=== PATIENT | female | born 1985 | race Caucasian/White ===

== ENCOUNTER 2018-02-16 14:40 | Inpatient (IN) | payer OTHER ==
[2018-02-16] MEDS ORDERED: ONDANSETRON 4 MG/2 ML VIAL IVP STA (15:20)
[2018-02-16] MEDS ORDERED: KETOROLAC 30 MG/ML 1 ML VIAL IVP STA (15:20)
[2018-02-16] MEDS ORDERED: SODIUM CHLORIDE 0.9% 1,000 ML IV STA ×2 (15:20→18:31)
[2018-02-16] MEDS ORDERED: PANTOPRAZOLE 40 MG/10 ML VIAL IVP STA (15:20)
--- NOTE | 2018-02-16 15:36 | ED ---
Abdominal Pain HPI - General Chief Complaint: Abdominal Pain Stated Complaint: Abd pain Time Seen by Provider: 02/16/18 14:51 Source: patient, RN notes reviewed, old records reviewed Mode of arrival: ambulatory Limitations: no limitations - History of Present Illness Initial Comments: This is a 30-year-old female the ER for evaluation abdominal pain. 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 Patient coming in with severe epigastric abdominal pain. Her back. Symptoms of been episodic for a few days of progressively worsening. Patient is unable to tolerate oral intake, react nausea vomiting. Denies fever denies any diarrhea or other significant abdominal pain lower belly. No prior history of abdominal surgeries or GI evaluation. Patient has no modifying factors for pain currently. No recent travel history or sick contacts MD Complaint: abdominal pain -: days(s) Location: periumbilical (With radiation to back) Radiation: back Severity: moderate Severity scale (1-10): 6 Quality: aching, sharp Consistency: constant Improves With: nothing Worsens With: eating Associated Symptoms: nausea, vomiting, diarrhea - Related Data Home Medications Medication Instructions Recorded Confirmed Albuterol Inhaler [Ventolin Hfa 2 puff INHALATION RT-Q6H PRN 02/16/18 02/16/18 Inhaler] Ibuprofen [Motrin Ib] 600 mg PO Q6HR PRN 02/16/18 02/16/18 Allergies Allergy/AdvReac Type Severity Reaction Status Date / Time No Known Allergies Allergy Verified 02/16/18 15:37 Review of Systems ROS Statement: Those systems with pertinent positive or pertinent negative responses have been documented in the HPI. ROS Other: All systems not noted in ROS Statement are negative. Past Medical History Additional Past Medical History / Comment(s): hep c meth use currently at [facility] for treatment History of Any Multi-Drug Resistant Organisms: None Reported Past Surgical History: Section Past Psychological History: No Psychological Hx Reported Smoking Status: Current every day smoker Past Alcohol Use History: None Reported Past Drug Use History: None Reported, Methamphetamine General Exam Limitations: no limitations General appearance: alert, in no apparent distress Head exam: Present: atraumatic, normocephalic, normal inspection Eye exam: Present: normal appearance, PERRL, EOMI. Absent: scleral icterus, conjunctival injection, periorbital swelling ENT exam: Present: normal exam, mucous membranes moist Neck exam: Present: normal inspection. Absent: tenderness, meningismus, lymphadenopathy Respiratory exam: Present: normal lung sounds bilaterally. Absent: respiratory distress, wheezes, rales, rhonchi, stridor Cardiovascular Exam: Present: regular rate, normal rhythm, normal heart sounds. Absent: systolic murmur, diastolic murmur, rubs, gallop, clicks GI/Abdominal exam: Present: soft, tenderness (epigastric), normal bowel sounds. Absent: distended, guarding, rebound, rigid Extremities exam: Present: normal inspection, full ROM, normal capillary refill. Absent: tenderness, pedal edema, joint swelling, calf tenderness Back exam: Present: normal inspection Neurological exam: Present: alert, oriented X3, CN II-XII intact Psychiatric exam: Present: normal affect, normal mood Skin exam: Present: warm, dry, intact, normal color. Absent: rash Course Vital Signs 02/16/18 14:46 Temperature 98.0 F Pulse Rate 79 Respiratory 18 Rate Blood Pressure 125/80 O2 Sat by Pulse 99 Oximetry - Reevaluation(s) Reevaluation #1: 02/16/18 18:25 Medical record is reviewed Reevaluation #2: 02/16/18 18:25 Patient is continued intractable abdominal pain with nausea and vomiting Medical Decision Making - Medical Decision Making 32 female the ER for evaluation severe epigastric pain. Pain radiates to back, pancreatitis with ulcerative disease likely peptic ulcer disease, patient be admitted for IV hydration and pain control - Lab Data Result diagrams: 02/16/18 15:38 02/16/18 15:38 Lab Results 02/16/18 02/16/18 02/16/18 Range/Units 15:38 15:38 15:49 WBC 8.2 (3.8-10.6) k/uL RBC 4.13 (3.80-5.40) m/uL Hgb 12.9 (11.4-16.0) gm/dL Hct 39.2 (34.0-46.0) % MCV 94.9 (80.0-100.0) fL MCH 31.4 (25.0-35.0) pg MCHC 33.0 (31.0-37.0) g/dL RDW 13.5 (11.5-15.5) % Plt Count 251 (150-450) k/uL Neutrophils % 72 % Lymphocytes % 20 % Monocytes % 4 % Eosinophils % 2 % Basophils % 0 % Neutrophils # 5.9 (1.3-7.7) k/uL Lymphocytes # 1.7 (1.0-4.8) k/uL Monocytes # 0.3 (0-1.0) k/uL Eosinophils # 0.2 (0-0.7) k/uL Basophils # 0.0 (0-0.2) k/uL Sodium 139 (137-145) mmol/L Potassium 4.8 (3.5-5.1) mmol/L Chloride 107 (98-107) mmol/L Carbon Dioxide 24 (22-30) mmol/L Anion Gap 8 mmol/L BUN 12 (7-17) mg/dL Creatinine 0.57 (0.52-1.04) mg/dL Est GFR (CKD-EPI)AfAm >90 (>60 ml/min/1.73 sqM) Est GFR (CKD-EPI)NonAf >90 (>60 ml/min/1.73 sqM) Glucose 109 H (74-99) mg/dL Calcium 9.3 (8.4-10.2) mg/dL Total Bilirubin 0.2 (0.2-1.3) mg/dL AST 30 (14-36) U/L ALT 46 (9-52) U/L Alkaline Phosphatase 50 (38-126) U/L Total Protein 6.5 (6.3-8.2) g/dL Albumin 3.5 (3.5-5.0) g/dL Amylase 75 (30-110) U/L Lipase 239 (23-300) U/L Urine Color Urine Appearance (Clear) Urine pH (5.0-8.0) Ur Specific [place] (1.001-1.035) Urine Protein (Negative) Urine Glucose (UA) (Negative) Urine Ketones (Negative) Urine Blood (Negative) Urine Nitrite (Negative) Urine Bilirubin (Negative) Urine Urobilinogen (<2.0) mg/dL Ur Leukocyte Esterase (Negative) Ur Squamous Epith Cells (0-4) /hpf Amorphous Sediment (None) /hpf Urine HCG, Qual Not Detected (Not Detectd) 02/16/18 Range/Units 15:49 WBC (3.8-10.6) k/uL RBC (3.80-5.40) m/uL Hgb (11.4-16.0) gm/dL Hct (34.0-46.0) % MCV (80.0-100.0) fL MCH (25.0-35.0) pg MCHC (31.0-37.0) g/dL RDW (11.5-15.5) % Plt Count (150-450) k/uL Neutrophils % % Lymphocytes % % Monocytes % % Eosinophils % % Basophils % % Neutrophils # (1.3-7.7) k/uL Lymphocytes # (1.0-4.8) k/uL Monocytes # (0-1.0) k/uL Eosinophils # (0-0.7) k/uL Basophils # (0-0.2) k/uL Sodium (137-145) mmol/L Potassium (3.5-5.1) mmol/L Chloride (98-107) mmol/L Carbon Dioxide (22-30) mmol/L Anion Gap mmol/L BUN (7-17) mg/dL Creatinine (0.52-1.04) mg/dL Est GFR (CKD-EPI)AfAm (>60 ml/min/1.73 sqM) Est GFR (CKD-EPI)NonAf (>60 ml/min/1.73 sqM) Glucose (74-99) mg/dL Calcium (8.4-10.2) mg/dL Total Bilirubin (0.2-1.3) mg/dL AST (14-36) U/L ALT (9-52) U/L Alkaline Phosphatase (38-126) U/L Total Protein (6.3-8.2) g/dL Albumin (3.5-5.0) g/dL Amylase (30-110) U/L Lipase (23-300) U/L Urine Color Yellow Urine Appearance Turbid H (Clear) Urine pH 7.5 (5.0-8.0) Ur Specific [place] 1.012 (1.001-1.035) Urine Protein Negative (Negative) Urine Glucose (UA) Negative (Negative) Urine Ketones Negative (Negative) Urine Blood Negative (Negative) Urine Nitrite Negative (Negative) Urine Bilirubin Negative (Negative) Urine Urobilinogen <2.0 (<2.0) mg/dL Ur Leukocyte Esterase Negative (Negative) Ur Squamous Epith Cells 1 (0-4) /hpf Amorphous Sediment Occasional H (None) /hpf Urine HCG, Qual (Not Detectd) - Radiology Data Radiology results: report reviewed (CT head and pelvis positive for pancreatitis and likely peptic ulcer disease), image reviewed Disposition Clinical Impression: Abdominal pain, Gastritis, Pancreatitis, Peptic ulcer disease Disposition: ADMITTED IP TO THIS [facility] Condition: Good Is patient prescribed a controlled substance at d/c from ED?: No Referrals: None,Stated [Primary Care Provider] - 1-2 days
[2018-02-16 15:52] LABS: Basophils % (A) 0 %; Eosinophils # (A) 0.2 k/uL (0-0.7); Eosinophils % (A) 2 %; HCT 39.2 % (34.0-46.0); HGB 12.9 gm/dL (11.4-16.0); Lymphocytes # (A) 1.7 k/uL (1.0-4.8); Lymphocytes % (A) 20 %; MCH 31.4 pg (25.0-35.0); MCV 94.9 fL (80.0-100.0); Monocytes # (A) 0.3 k/uL (0-1.0); Monocytes % (A) 4 %; Neutrophils # (A) 5.9 k/uL (1.3-7.7); Neutrophils % (A) 72 %; Platelet Count 251 k/uL (150-450); RBC 4.13 m/uL (3.80-5.40); RDW 13.5 % (11.5-15.5); WBC 8.2 k/uL (3.8-10.6)
[2018-02-16 16:01] LABS: ALT 46 U/L (9-52); AST 30 U/L (14-36); Albumin 3.5 g/dL (3.5-5.0); Alkaline Phosphatase 50 U/L (38-126); Amylase 75 U/L (30-110); Anion Gap 8 mmol/L; Blood Urea Nitrogen 12 mg/dL (7-17); Calcium 9.3 mg/dL (8.4-10.2); Carbon Dioxide 24 mmol/L (22-30); Chloride 107 mmol/L (98-107); Glucose 109 mg/dL (74-99); Lipase 239 U/L (23-300); Potassium 4.8 mmol/L (3.5-5.1); Sodium 139 mmol/L (137-145); Total Bilirubin 0.2 mg/dL (0.2-1.3); Total Protein 6.5 g/dL (6.3-8.2)
[2018-02-16 16:31] LABS: Amorphous Sediment,Urine Occasional /hpf; Appearance,Urine Turbid (Clear); Bilirubin,Urine Negative (Negative); Blood,Urine Negative (Negative); Color,Urine Yellow; Glucose,Urine (UA) Negative (Negative); Ketones,Urine Negative (Negative); Leukocyte Esterase,Urine Negative (Negative); Nitrite,Urine Negative (Negative); PH, Urine 7.5 (5.0-8.0); Protein,Urine Negative (Negative); Specific Gravity,Urine 1.012 (1.001-1.035); Squamous Epithelial Cell,Urine 1 /hpf (0-4); Urobilinogen,Urine <2.0 mg/dL (<2.0)
--- NOTE | 2018-02-16 17:56 | CT ---
EXAMINATION TYPE: CT abdomen pelvis w con DATE OF EXAM: 02/16/2018 COMPARISON: None HISTORY: Mid abdominal pain with nausea, vomiting, back and right shoulder pain x [address] DLP: 604.9 mGycm Automated exposure control for dose reduction was used. TECHNIQUE: Helical acquisition of images was performed from the lung bases through the pelvis. CONTRAST: Performed without Oral Contrast and with IV Contrast, patient injected with 100 mL of Isovue 300. FINDINGS: There is edematous change throughout the anterior pararenal space of the epigastrium, related to the proximal duodenum as well as the pancreatic head and neck. This can correlate with a clinical diagnos is of pancreatitis versus peptic ulcer disease. LUNG BASES: No significant abnormality is appreciated. LIVER/GB: No significant abnormality is appreciated. PANCREAS: As above. SPLEEN: No significant abnormality is seen. ADRENALS: No significant abnormality is seen. KIDNEYS: No significant abnormality is seen. FREE AIR: No free air is visualized. RETROPERITONEAL ADENOPATHY: None visualized REPRODUCTIVE ORGANS: The uterus and bilateral adnexa appears mildly enlarged and indistinct. If clini rene indicated, ultrasound characterization can characterize. URINARY BLADDER: No significant abnormality is seen. PELVIC ADENOPATHY: None visualized. OSSEOUS STRUCTURES: No significant abnormality is seen. BOWEL: Epigastric extraperitoneal edematous change as above. Immediate of the hollow viscera examina tion unremarkable. VASCULATURE: No acute findings. IMPRESSION: SUSPECT PANCREATITIS VERSUS PEPTIC ULCER DISEASE.
[2018-02-16] MEDS ORDERED: SODIUM CHLORIDE 0.9% 1,000 ML IV ONE (18:27)
[2018-02-16] MEDS ORDERED: MORPHINE SULFATE 4 MG/ML SYRINGE IVP STA (18:28)
[2018-02-16] MEDS ORDERED: ONDANSETRON 4 MG/2 ML VIAL IVP PRN (18:28)
[2018-02-16] MEDS ORDERED: SODIUM CHLORIDE 0.9% 500 ML 500 ML IV STA (18:31)
[2018-02-16] MEDS ORDERED: NICOTINE 21MG/24HR PATCH TRANSDERM STA (18:40)
--- NOTE | 2018-02-16 20:23 | P.HPIM ---
History of Present Illness H&P Date: 02/16/18 Chief Complaint: Abdominal pain The patient is a 32-year-old female with a past medical history of bronchitis, hepatitis C who presents to the ER via private vehicle with chief complaint of abdominal pain. The patient reports constant severe sharp mid epigastric to right upper quadrant abdominal pain over the last 6 days with radiation into her back and right shoulder. She reports associated nausea and vomiting but denies any constipation or diarrhea, she denies any chest pain shortness of breath or palpitations or subjective fevers chills or night sweats. The patient denies any significant alcohol use, she does report a history of taking NSAIDs ibuprofen for chronic headaches and migraines and takes of approximately 3-4 days per week. The patient denies any significant appetite changes and is also requesting to eat. In the ER the patient had a comprehensive workup: CT abdomen and pelvis suggestive of acute pancreatitis versus peptic ulcer disease, she received morphine and Zofran. Her admission lab work was largely unremarkable. Review of Systems Pertinent positives per HPI all other review of systems are otherwise negative Past Medical History Past Medical History: Asthma Additional Past Medical History / Comment(s): hep c - iv meth use -currently at [facility] for treatment, bronchitis,"occ heartburn takes otc med), "i had a seizure few weeks ago witness by my dad but i did'nt seek help". History of Any Multi-Drug Resistant Organisms: None Reported Past Surgical History: Section Past Anesthesia/Blood Transfusion Reactions: No Reported Reaction Smoking Status: Current every day smoker - Past Family History Mother Family Medical History: CVA/TIA Additional Family Medical History / Comment(s): grandmother has breast cancer Father Family Medical History: CVA/TIA Additional Family Medical History / Comment(s): tia Medications and Allergies Home Medications Medication Instructions Recorded Confirmed Type Albuterol Inhaler [Ventolin Hfa 2 puff INHALATION RT-Q6H PRN 02/16/18 02/16/18 History Inhaler] Ibuprofen [Motrin Ib] 600 mg PO Q6HR PRN 02/16/18 02/16/18 History Allergies Allergy/AdvReac Type Severity Reaction Status Date / Time No Known Allergies Allergy Verified 02/16/18 15:37 Physical Exam Vitals: Vital Signs Temp Pulse Resp BP Pulse Ox 02/16/18 14:46 98.0 F 79 18 125/80 99 Intake and Output 02/16/18 02/16/18 02/16/18 06:59 14:59 22:59 Other: Weight 66.678 kg Constitutional: No acute distress, conversant, pleasant Eyes: Anicteric sclerae, moist conjunctiva, no lid-lag, PERRLA ENMT: NC/AT,Oropharynx clear, no erythema, exudates Neck:Supple, FROM, no masses, or JVD, No carotid bruits; No thyromegaly Lungs: Clear to auscultation, Clear to percussion, Normal respiratory effort, no accessory muscle use Cardiovascular: Heart regular in rate and rhythm, No murmurs, gallops, or rubs no peripheral edema Abdominal: Soft tender to palpation in the epigastrium and right upper quadrant , positive Alonzo sign, no guarding, no rebound or rigidity, Normoactive bowel sounds No hepatomegaly, No splenomegaly, No palpable mass No abdominal wall hernia noted Skin: Normal temperature, tone, texture, turgor, No induration No subcutaneous nodules, No rash, lesions, No ulcers Extremities:No digital cyanosis No clubbing, Pedal pulses intact and symmetrical Radial pulses intact and symmetrical Normal gait and station, No calf tenderness Psychiatric: Alert and oriented to person, place and time, Appropriate affect Intact judgement Neuro: Muscles Strength 5/5 in all 4 extremities, Sensation to light touch grossly present throughout, Cranial nerves II-XII grossly intact. No focal sensory deficits Results CBC & Chem 7: 02/16/18 15:38 02/16/18 15:38 Labs: Abnormal Lab Results - Last 24 Hours (Table) 02/16/18 02/16/18 Range/Units 15:38 15:49 Glucose 109 H (74-99) mg/dL Urine Appearance Turbid H (Clear) Amorphous Sediment Occasional H (None) /hpf Assessment and Plan Assessment: Chronic medical conditions Asthma Hepatitis C GERD History of IV drug use (1) Epigastric pain Current Visit: Yes Status: Acute Code(s): R10.13 - EPIGASTRIC PAIN SNOMED Code(s): 15964366 (2) Peptic ulcer disease Current Visit: Yes Status: Acute Code(s): K27.9 - PEPTIC ULC, SITE UNSP, UNSP AC OR CHR, W/O HEMOR OR PERF SNOMED Code(s): 73285734 (3) GERD (gastroesophageal reflux disease) Current Visit: Yes Status: Acute Code(s): K21.9 - GASTRO-ESOPHAGEAL REFLUX DISEASE WITHOUT ESOPHAGITIS SNOMED Code(s): 884717795 (4) Asthma Current Visit: Yes Status: Acute Code(s): J45.909 - UNSPECIFIED ASTHMA, UNCOMPLICATED SNOMED Code(s): 112080766 Plan: The patient is placed on observation anticipated less than 2 midnight stay with acute midepigastric pain workup and history suggesting underlying peptic ulcer disease likely secondary to ongoing NSAID use. CT abdomen and pelvis suggesting peptic ulcer disease versus pancreatitis with lipase is normal with no significant history of alcoholism. Patient was started on IV fluids, IV antiemetics and IV morphine for pain. Patient with positive Alonzo sign on exam will order right upper quadrant ultrasound to rule out underlying hepatobiliary disease. We'll also plan to consult GI for evaluationpatient may need a EGD. Continued on IV Protonix. Patient's asthma of unknown type is currently stable without acute exacerbation. we'll continue to follow patient's clinical course CODE STATUS Full code Discussed plan of care with; patient and ER physician Anticipated discharge 1-2 days
[2018-02-16] MEDS: MORPHINE SULFATE 4 MG/ML SYRINGE IVP PRN (22:16)
[2018-02-17] MEDS: MORPHINE SULFATE 4 MG/ML SYRINGE IVP PRN ×2 (01:43→06:12)
[2018-02-17] MEDS: SODIUM CHLORIDE 0.9% 1,000 ML IV SCH ×2 (08:33→16:20)
[2018-02-17] MEDS: HEPARIN SODIUM,PORCINE 5,000 UNIT/ML 1 ML VIAL SQ SCH ×2 (08:34→20:25)
[2018-02-17] MEDS ORDERED: PANTOPRAZOLE 40 MG/10 ML VIAL IVP SCH (09:00)
--- NOTE | 2018-02-17 09:03 | P.CONS ---
History of Present Illness - Reason for Consult Consult date: 02/17/18 Pancreatitis abdominal pain Requesting physician: Jonh Becerra - Chief Complaint Abdominal pain - History of Present Illness 32-year-old female with a history of IVDA heroin, long-standing EtOH abuse chronic hepatitis C without antiviral treatment presently at [facility] for rehabilitation presents with a one-week history of severe epigastric upper abdominal back pain with nonbloody emesis. Patient last abused alcohol about 10 days ago as well as heroin/methamphetamines. No history of this type of pain. CT reported suspect pancreatitis possible peptic ulcer disease. Liver function tests pancreatic enzymes within normal limits. Afebrile. Denies hematemesis hematochezia melena. Ultrasound abdomen pending. She has been prescribed antiviral treatment for her hepatitis C by another outside provider but has not started it. White count 8.2. Hemoglobin 12.9. Platelet 251. HCG not detected. This morning her abdominal pain is much improved she's requesting diet. Review of Systems Constitutional: Denies fever, chills, sweats, weight gain, or loss. HEENT: Negative for migraines, blurred vision or loss, earaches, drainage, tinnitus, oral mucosal lesions, dysphagia, or odynophagia. CARDIAC: Negative for chest pain, arrhythmias, or palpitation. RESPIRATORY: Negative for shortness of breath, hemoptysis, cough, or sputum production. GI: See HPI for pertinent findings. : Negative for hematuria, urgency, frequency, polyuria, or dysuria. GYNc: Denies possibility of . Negative vaginal discharge. MUSCULOSKELETAL: Negative for muscle aches, swelling, arthritis, and arthralgias. NEUROLOGIC: Negative for stroke or TIA. ENDOCRINE: Negative for thyroid problems. SKIN: Negative for rash or itching. PSYCHIATRIC: Negative history for depression and anxiety Past Medical History Past Medical History: Asthma Additional Past Medical History / Comment(s): hep c - iv meth use -currently at [facility] for treatment, bronchitis,"occ heartburn takes otc med), "i had a seizure few weeks ago witness by my dad but i did'nt seek help". History of Any Multi-Drug Resistant Organisms: None Reported Past Surgical History: Section Past Anesthesia/Blood Transfusion Reactions: No Reported Reaction Smoking Status: Current every day smoker - Past Family History Mother Family Medical History: CVA/TIA Additional Family Medical History / Comment(s): grandmother has breast cancer Father Family Medical History: CVA/TIA Additional Family Medical History / Comment(s): tia Medications and Allergies Home Medications Medication Instructions Recorded Confirmed Type Albuterol Inhaler [Ventolin Hfa 2 puff INHALATION RT-Q6H PRN 02/16/18 02/16/18 History Inhaler] Ibuprofen [Motrin Ib] 600 mg PO Q6HR PRN 02/16/18 02/16/18 History Allergies Allergy/AdvReac Type Severity Reaction Status Date / Time No Known Allergies Allergy Verified 02/16/18 15:37 Physical Exam Vitals: Vital Signs Temp Pulse Pulse Resp BP BP Pulse Ox 02/17/18 06:17 97.9 F 65 15 115/78 98 02/16/18 23:00 97.4 F L 64 18 115/75 100 02/16/18 20:29 97.8 F 68 18 122/79 99 02/16/18 18:50 85 18 110/80 98 02/16/18 14:46 98.0 F 79 18 125/80 99 Intake and Output 02/16/18 02/17/18 02/17/18 22:59 06:59 14:59 Output Total 200 Balance -200 Output: Urine 200 Other: # Voids 0 Weight 66.678 kg General appearance: The patient is alert, oriented, in no acute distress. HET: Head is normocephalic and atraumatic. Pupils are equal and reactive. Oropharynx is clear without lesions. Neck: Supple without lymphadenopathy. Trachea midline. Heart: S1 S2. Regular rate and rhythm. Lungs: No crackles or wheezes are heard. Abdomen: Soft, nontender, nondistended with bowel sounds. No peritoneal signs. No palpable organomegaly or masses. Extremities: Normal skin color and turgor. No cyanosis, rash, ulceration, clubbing, or edema. Radial and pedal pulses are 2/4 bilaterally. Neurological: No focal deficits. Strength and sensation are grossly intact. Results CBC & Chem 7: 02/16/18 15:38 02/16/18 15:38 Labs: Abnormal Lab Results - Last 24 Hours (Table) 02/16/18 02/16/18 Range/Units 15:38 15:49 Glucose 109 H (74-99) mg/dL Urine Appearance Turbid H (Clear) Amorphous Sediment Occasional H (None) /hpf Microbiology - Last 24 Hours (Table) 02/16/18 15:49 Urine Culture - Preliminary Urine,Voided CT scan - abdomen: report reviewed (Dr. Leblanc) US - abdomen: pending Assessment and Plan (1) Pancreatitis Narrative/Plan: Acute pancreatitis suspect alcohol related with a long-standing history of EtOH abuse intravenous drug abuse last usage 10 days ago with biochemical stability of pancreatic and liver enzymes. The possibility of peptic ulcer disease is within the differential however her presentation seems to be more alcohol possible drug-induced related. No episodes of hematemesis hematochezia melena fever chills or prior history of peptic ulcer disease. Current Visit: Yes Status: Acute Code(s): K85.90 - ACUTE PANCREATITIS WITHOUT NECROSIS OR INFECTION, UNSP SNOMED Code(s): 91599898 (2) Chronic hepatitis C Current Visit: Yes Status: Acute Code(s): B18.2 - CHRONIC VIRAL HEPATITIS C SNOMED Code(s): 122662873 (3) ETOH abuse Current Visit: Yes Status: Acute Code(s): F10.10 - ALCOHOL ABUSE, UNCOMPLICATED SNOMED Code(s): 83275474 (4) Drug abuse Current Visit: Yes Status: Acute Code(s): F19.10 - OTHER PSYCHOACTIVE SUBSTANCE ABUSE, UNCOMPLICATED SNOMED Code(s): 61421132 Plan: 1. Inpatient EGD not planned at this time empirically treated with Protonix 40 mg daily. Patient is requesting diet and discharge. Will allow low fat diet if tolerated discharge per medicine. Alcohol abstinence intravenous drug abuse/ methamphetamine use abstinence was strongly advised. Thank you for this kind referral and the opportunity to participate in the care of your patient. This consultation was discussed with Dr. Leblanc. The impression and plan of care have been directed as dictated.
--- NOTE | 2018-02-17 09:13 | US ---
EXAMINATION TYPE: US abdomen limited DATE OF EXAM: 02/17/2018 COMPARISON: Correlation CT 02/16/2018 CLINICAL HISTORY: 32-year-old female abdominal pain with nausea, rule out GB disease. TECHNIQUE: Multiple sonographic images of the right upper quadrant are obtained. FINDINGS: EXAM MEASUREMENTS: Liver Length: 18.2 cm Gallbladder Wall: 0.2 cm CBD: 4.8 mm Right Kidney: 11.7 x 5.4 x 4.7 cm Pancreas: wnl Liver: Mildly enlarged. No focal lesion. Overall homogeneous echotexture. Trace perihepatic ascites noted. Gallbladder: appears slightly contracted and patient is NPO 7hrs, no obvious stone or wall thickenin g seen. Evidence for sonographic Alonzo's sign: no CBD: wnl Right Kidney: 2.0 cm mid pole cyst seen IMPRESSION: 1. Mild hepatomegaly. 2. Trace perihepatic ascites of uncertain etiology. 3. No evidence for cholelithiasis or specific sonographic findings of acute cholecystitis at this [facility].
--- NOTE | 2018-02-17 10:32 | P.PN ---
Subjective Progress Note Date: 02/17/18 Principal diagnosis: Epigastric pain Patient is feeling about the same today. She is still complaining of severe pain mostly in the epigastric area. No nausea or vomiting overnight. Objective - Vital Signs Vital signs: Vital Signs Temp 97.9 F 02/17/18 06:17 Pulse 65 02/17/18 06:17 Resp 15 02/17/18 06:17 BP 115/78 02/17/18 06:17 Pulse Ox 98 02/17/18 06:17 Intake & Output 02/16/18 02/17/18 02/17/18 18:59 06:59 18:59 Output Total 200 Balance -200 Weight 66.678 kg 66.678 kg Output: Urine 200 Other: # Voids 0 - Exam General: The patient is awake and alert, in no distress Eye: there is normal conjunctiva bilaterally. Neck: The neck is supple, there is no JVD. Cardiovascular: Normal S1-S2, no S3-S4, no murmurs. Respiratory: Lungs clear to auscultation bilaterally Gastrointestinal: Abdomen is soft, there is moderate tenderness to palpation mostly in the epigastric area Musculoskeletal: There is no pedal edema. Neurological:. Speech is normal. Skin: Skin is warm and dry - Labs CBC & Chem 7: 02/16/18 15:38 02/16/18 15:38 Labs: Abnormal Lab Results - Last 24 Hours (Table) 02/16/18 02/16/18 Range/Units 15:38 15:49 Glucose 109 H (74-99) mg/dL Urine Appearance Turbid H (Clear) Amorphous Sediment Occasional H (None) /hpf Microbiology - Last 24 Hours (Table) 02/16/18 15:49 Urine Culture - Preliminary Urine,Voided Assessment and Plan Assessment: 1. Severe epigastric pain with findings on computed tomography scan of the abdomen suspicious for peptic ulcer disease versus pancreatitis 2. Suspected peptic ulcer disease 3. History of heavy alcohol abuse 4. History of polysubstance abuse including methamphetamine and cocaine Patient was seen and evaluated by me today. Her clinical presentation most likely consistent with suspected peptic ulcer disease. I believe acute pancreatitis is less likely as patient had her last drink of alcohol over a week ago and her lipase and liver enzymes are normal. I discussed my impression with the GI nurse practitioner and advised to obtain an diagnostic EGD for further evaluation. In the meantime we will continue IV fluid hydration , IV Protonix 40 mg twice daily, and supportive care. Patient was counseled regarding substance abuse and alcohol. She came from [place] where she is seeking help. She should return to [place] after her discharge.
[2018-02-17] MEDS: MORPHINE SULFATE 2 MG/ML SYRINGE IVP PRN ×4 (10:43→23:48)
[2018-02-17] MEDS: NICOTINE 21MG/24HR PATCH TRANSDERM SCH (16:20)
[2018-02-17] MEDS ORDERED: LIDOCAINE 1% 20 ML VIAL (10MG/ML) FOR IV START INTRADERMA PRN (17:22)
[2018-02-17] MEDS ORDERED: LACTATED RINGERS 1,000 ML IV SCH (17:30)
[2018-02-17] MEDS: PANTOPRAZOLE 40 MG/10 ML VIAL IVP SCH (20:25)
[2018-02-18] MEDS ORDERED: MELATONIN 3 MG TABLET PO PRN (00:29)
[2018-02-18 00:44] VITALS: RESP 16
[2018-02-18] MEDS: SODIUM CHLORIDE 0.9% 1,000 ML IV SCH ×2 (02:40→12:14)
[2018-02-18] MEDS ORDERED: MIDAZOLAM 2 MG/2 ML VIAL ONE (07:00)
[2018-02-18] MEDS ORDERED: LIDOCAINE 1% INJ 10MG/ML (20 ML MDV) ONE (07:00)
[2018-02-18] MEDS ORDERED: IV FLUID CONTINUATION 1,000 ML IV ONE (07:00)
[2018-02-18] MEDS ORDERED: PROPOFOL 10 MG/ML 20 ML VIAL IV ONE (07:00)
--- NOTE | 2018-02-18 07:57 | P.PCN ---
Date of Procedure: 02/18/18 Procedure(s) Performed: Procedure: Esophagogastroduodenoscopy and biopsy. Preoperative diagnosis: Epigastric pain and nonbloody emesis. Postoperative diagnosis: 1. Mild antral gastritis. 2. Biopsies obtained from the antrum and esophagus. Preparation sedation: Was provided by anesthesia. Brief clinical history: The patient is a 32-year-old female with a history of IVDA heroin, long-standing EtOH abuse chronic hepatitis C without antiviral treatment presently at [facility] for rehabilitation presents with a one-week history of severe epigastric upper abdominal back pain with nonbloody emesis. Patient last abused alcohol about 10 days ago as well as heroin/ methamphetamines. No history of this type of pain. CT reported suspect pancreatitis possible peptic ulcer disease. Liver function tests pancreatic enzymes within normal limits. Afebrile. Denies hematemesis hematochezia melena. This evaluation is to assess for peptic ulcer disease. Other details as summarized in the history and physical and dictated consultation and progress notes. Procedure: With the patient on her left lateral decubitus position and after informed consent and adequate sedation, I passed the Olympus-GIF 160 video upper endoscope through the cricopharyngeus down the esophagus. GE junction was around 40 cm from the incisors and there was no definite hiatal hernia or any obvious esophagitis or complicated reflux disease. The endoscope was then passed into the stomach which was insufflated with air and inspected in detail including the retroflex view in the cardia. There was mottling, erythema and minimal friability in the antrum and prepyloric area but no ulcers, erosions or bleeding. Pyloric channel, duodenal bulb, post bulbar area and descending duodenum appeared healthy with no evidence of ulcers. I obtained biopsies from the antrum and esophagus then the endoscope was withdrawn. The patient tolerated the procedure well. Plan: The patient was reassured. Will allow clear liquid diet and advance as tolerated. Further plans based on her course and biopsy results.
[2018-02-18] MEDS: MORPHINE SULFATE 2 MG/ML SYRINGE IVP PRN (08:23)
[2018-02-18] MEDS: NICOTINE 21MG/24HR PATCH TRANSDERM SCH (08:23)
[2018-02-18] MEDS: PANTOPRAZOLE 40 MG/10 ML VIAL IVP SCH (08:24)
[2018-02-18] MEDS: HEPARIN SODIUM,PORCINE 5,000 UNIT/ML 1 ML VIAL SQ SCH (08:24)
[2018-02-18 09:04] VITALS: BP 122/74; PULSE 62; TEMP 97.5
--- NOTE | 2018-02-18 10:54 | P.DS ---
Providers Date of admission: 02/17/18 07:57 Expected date of discharge: 02/18/18 Attending physician: Nila Zamora MD Consults: 02/16/18 18:27 Consult Physician Routine Consulting Provider: José Padilla Consult Reason/Comments: pancreatitis Do you want consulting provider notified?: Yes Primary care physician: Stated None Hospital Course: 32-year-old female with past medical history of heavy alcohol abuse and polysubstance abuse including cocaine and methamphetamine who presented to the emergency room with acute epigastric pain and was evaluated and admitted to the hospital for the below mentioned medical problems. Please refer to the electronic chart for further details. 1. Severe epigastric pain with findings on computed tomography scan of the abdomen suspicious for peptic ulcer disease versus pancreatitis: Acute pancreatitis is very less likely clinically as patient has a normal lipase and did not drink alcohol for over 10 days prior to her presentation. Abdominal ultrasound showed no evidence of cholelithiasis or acute cholecystitis. There was some ascites noted. Patient was seen and evaluated by GI. She underwent EGD that showed mild gastritis. Biopsies obtained awaiting results. 2. Mild gastritis: We will start Protonix 40 mg daily for 2 weeks 3. History of heavy alcohol abuse: Counseled extensively to stop 4. History of polysubstance abuse including methamphetamine and cocaine 5. Chronic hepatitis C Patient's overall condition improved since her admission. She will be discharged home in a stable condition. She will follow-up with her PCP regarding biopsies resolved. Patient Condition at Discharge: Fair Plan - Discharge Summary Discharge Rx Participant: No New Discharge Prescriptions: New Pantoprazole Sodium [Protonix] 40 mg PO DAILY #21 tablet. Continue Albuterol Inhaler [Ventolin Hfa Inhaler] 2 puff INHALATION RT-Q6H PRN PRN Reason: Shortness Of Breath Discontinued Ibuprofen [Motrin Ib] 600 mg PO Q6HR PRN PRN Reason: Pain Discharge Medication List Albuterol Inhaler [Ventolin Hfa Inhaler] 2 puff INHALATION RT-Q6H PRN 02/16/18 [ History] Pantoprazole Sodium [Protonix] 40 mg PO DAILY #21 tablet. 02/18/18 [Rx] Follow up Appointment(s)/Referral(s): None,Stated [Primary Care Provider] - 1-2 days José Padilla MD [STAFF PHYSICIAN] - 3 Weeks Activity/Diet/Wound Care/Special Instructions: Return to [place] at discharge Discharge Disposition: HOME SELF-CARE
[2018-02-18] MEDS ORDERED: PANTOPRAZOLE 40 MG TABLET PO SCH (17:30)
== END 2018-02-18 15:09 | DRG 392 ==
LOC: EC 14:40 → 4MS4W 18:29 → OBSVTOIN 02-17 07:57
PROVIDERS: ADMIT Internal Medicine; ATTEND Internal Medicine
PROC: 0DB78ZX Excision of Stomach, Pylorus, Via Natural or Artificial Opening Endoscopic, Diagnostic (ICD-10-PCS; principal; 2018-02-18 09:00)
DX: K29.70 Gastritis, unspecified, without bleeding (principal); B18.2 Chronic viral hepatitis C; F10.10 Alcohol abuse, uncomplicated; F17.200 Nicotine dependence, unspecified, uncomplicated; J45.909 Unspecified asthma, uncomplicated; K21.9 Gastro-esophageal reflux disease without esophagitis; Z71.6 Tobacco abuse counseling; Z80.3 Family history of malignant neoplasm of breast
CPT/HCPCS: 36415; 43239; 74177; 76705; 80053; 81001; 81025; 82150; 83690; 85025; 87086; 88305; 96361; 96374; 96375; 99285